=== PATIENT | female | born 1960 | race Caucasian/White ===

== ENCOUNTER 2017-09-05 06:13 | Day surgery (SDC) | payer BC, MEDICARE ==
--- NOTE | 2017-08-30 20:09 | HP ---
HISTORY AND PHYSICAL: DATE OF ADMISSION/SURGERY: 09/05/17 DATE OF OFFICE VISIT: 08/30/17 SURGEON: Juli Cannon MD.* (DICTATED BY FLAKO CHUNG) PROCEDURE: Right knee arthroscopy with partial meniscectomy, possible chondroplasty, possible synovectomy. CHIEF COMPLAINT: Right knee pain. HISTORY OF PRESENT ILLNESS: Ms. Chung is a 56-year-old female with continued complaints of right knee pain. She has failed conservative treatment and elected to proceed with the right knee arthroscopy with partial meniscectomy, which is scheduled for 09/05/[address] Cannon. PAST MEDICAL HISTORY: AFib, IBS, fibromyalgia, atrial tachycardia, gastroparesis, sleep apnea, hypertension, scoliosis, high cholesterol. PAST SURGICAL HISTORY: Spinal stimulator placement, multiple spine surgery, salivary gland excision, bunion surgery, appendectomy, cholecystectomy, hysterectomy. CURRENT MEDICATIONS: 1. Gabapentin 300 mg 3 times a day. 2. Bystolic 10 mg once a day. 3. Eliquis 5 mg twice a day. 4. Rythmol 225 once daily. 5. Xyzal Allergy 5 mg every day. 6. EpiPen as needed. 7. Protonix 40 mg twice a day. 8. Cyclobenzaprine 10 mg daily. 9. Refresh Eye Drops. 10. Lidocaine 5% as needed. 11. Multivitamin. 12. Crestor 10 mg daily. ALLERGIES: LATEX, CONTRAST DYE, ANTIMICROBIAL PRESERVATIVES, DUST MITES, MOLD, POTASSIUM DICHROMATE, PROPYLENE GLYCOL, NICKEL SULFATE, NEOMYCIN SULFATE, METHYLDIBROMO GLUTARONITRILE, GOLD SODIUM THIOSULFATE, GLYCERYL THIOGLYCOLATE, and BRONOPOL. FAMILY HISTORY: Stroke, DVT, PE, and hypertension. SOCIAL HISTORY: She is a 56-year-old female. She lives with her . She does not smoke, use drugs, and use alcohol rarely. REVIEW OF SYSTEMS: A complete 14-point review of systems was reviewed with the patient, is positive for GERD. She denies history of DVT, PE, hepatitis, HIV, or MRSA. PHYSICAL EXAMINATION GENERAL: She is well developed, well nourished, in no acute distress. VITAL SIGNS: She stands 65 inches tall, weighs 178 pounds. Her blood pressure is 122/72, and her heart rate is 80. HEENT: Normocephalic and atraumatic. NECK: Supple. No palpable lymph nodes. PULMONARY: Lungs are clear to auscultation bilaterally. CARDIO: Regular rate and rhythm. Strong S1, S2. ABDOMEN: Soft, nontender, and nondistended. MUSCULOSKELETAL: Right lower extremity, the skin is intact. There is no open wounds or abrasions. There is a moderate joint effusion. Range of motion is 20 to 100 degrees with flexion with extreme pain. She has swelling and tenderness along the medial joint line. Positive Apley's, Klaus's. 2+ dorsalis pedis pulses. Intact sensation in her lower extremity. Muscle groups strengths were intact to 5/5. NEUROLOGICAL: She is alert and oriented x3. ASSESSMENT AND PLAN: Ms. Chung is a 56-year-old female with severe right knee pain. She has elected to proceed with a right knee arthroscopy with partial meniscectomy, possible chondroplasty, possible synovectomy. The surgery is scheduled for 09/05/[address] Cannon discussed the risks and benefits of the surgery at today's visit and all of her questions were answered. She will follow with Dr. Cannon 2 weeks after the surgery. FLAKO CHUNG [id number]/[facility] #: [id number] MTDKarthik
[~2017-09-05 06:13] MED LIST: Buffered Lidocaine 0.9% SYRIN* 5 ML/SYR SYRINGE INTRADERM ONE
[2017-09-05] MEDS ORDERED: Propofol* 10 MG/ML 20 ML BTL IV PUSH ONE (06:30)
[2017-09-05] MEDS ORDERED: Lidocaine 2% PF * 5 ML VIAL ONE (06:31)
[2017-09-05] MEDS ORDERED: Midazolam* 1 MG/ML 2 ML VIAL (2 MG) ONE (06:34)
[2017-09-05] MEDS ORDERED: fentaNYL* 50 MCG/ML 2 ML VIAL (100 MCG VIAL) ONE ×2 (06:34→08:15)
[2017-09-05] MEDS ORDERED: ceFAZolin 2 GM PREMIX (*) 2 GM/50 ML BAG IVPB ONE (06:41)
[2017-09-05] MEDS ORDERED: EPINEPHRINE 1 MG/ML 1 ML VIAL ONE (06:49)
[2017-09-05] MEDS ORDERED: Bupivacaine 0.5% PF 10 ML VIAL INJ ONE (06:49)
[2017-09-05] MEDS ORDERED: methylPREDNISolone ACETATE 80* 80 MG/ML 1 ML VIAL ONE (06:49)
[2017-09-05] MEDS ORDERED: Dexamethasone IV* 4 MG/ML 1 ML (4 MG) ONE (07:51)
[2017-09-05] MEDS ORDERED: Propofol* 500 MG/50 ML BTL ONE (08:06)
[2017-09-05] MEDS ORDERED: HYDROmorphone INJ* 0.5 MG/0.5 ML SYRINGE IV PRN (08:26)
[2017-09-05] MEDS ORDERED: Naloxone* 0.4 MG/ML 1 ML VIAL IV PRN (08:26)
[2017-09-05] MEDS ORDERED: Metoclopramide IV* 5 MG/ML 2 ML VIAL IV PRN (08:26)
[2017-09-05] MEDS ORDERED: Acetaminophen IV 1GM/100ML * 1,000 MG/100 ML VIAL IVPB ONE (08:26)
[2017-09-05] MEDS ORDERED: Ondansetron INJ* 2 MG/ML VIAL ONE (08:34)
[2017-09-05] MEDS ORDERED: Ketorolac INJ* 30 MG/ML 1 ML VIAL ONE (08:34)
[2017-09-05] MEDS ORDERED: Acetaminophen IV 1GM/100ML * 100 ML ONE (08:58)
[2017-09-05] MEDS ORDERED: Metoclopramide IV* 5 MG/ML 2 ML VIAL ONE (09:48)
[2017-09-05 10:13] VITALS: BP 124/66
--- NOTE | 2017-09-06 13:12 | OP ---
DATE OF OPERATION: 09/05/17 - [facility] DATE OF : 64. ATTENDING SURGEON: Juli Cannon M.D. PLANT PROTECTION SUPERVISOR: FLAKO Crowley. Mr. Rojas did help throughout the procedure with preparation of the leg, wound retraction, manipulation of the knee, and wound closure. ANESTHESIOLOGIST: Dr. Pabon. ANESTHESIA: General. PRE-OP DIAGNOSES: Right knee medial meniscal tear, osteoarthritis. POST-OP DIAGNOSES: Right knee medial meniscal tear, osteoarthritis. OPERATIVE PROCEDURE: Right knee arthroscopy with partial medial meniscectomy. ESTIMATED BLOOD LOSS: Less than 25 mL. COMPLICATIONS: None. SPECIMEN: None. BRIEF HISTORY/INDICATIONS: Ms. Chung is a 56-year-old female with several years of increasingly severe right knee pain. Recently, she started to have significant mechanical symptoms along the medial joint line. MRI confirmed a medial meniscal tear. The patient failed conservative treatment with antiinflammatories, pain medications, ambulatory assistive devices, and physical therapy. Due to continued pain and decreased quality of life, she elected to undergo right knee arthroscopy with partial medial meniscectomy, possible chondroplasty, possible synovectomy. Informed consent was obtained from the patient. She understood the risks of surgery included, but were not limited to, bleeding, infection, damage to nearby structures, continued pain, need for further surgery, retear of the meniscus, progression of arthritis, stroke, heart attack, blood clot, and . She wished to proceed. INTRAOPERATIVE FINDINGS: Intraoperatively, the patient was noted to have a linear tear involving the majority of the medial meniscus in the white-red zone. She was noted to have grade 3 and 4 Outerbridge cartilage changes along the medial femoral condyle involving a significant surface area of the weightbearing portion. Lateral and patellofemoral compartment had some scattered grade 2 and 3 Outerbridge cartilage changes. Otherwise, no significant findings. DESCRIPTION OF PROCEDURE: Ms. Chung was identified in the preanesthesia unit. Her right lower extremity was marked as the correct operative side. Informed consent was signed and placed in the chart. The patient was taken to the operating room and placed under general anesthesia. Right lower extremity was prepped and draped in the usual sterile fashion. Preop time-out was made to correctly identify the patient's side and site. Appropriate perioperative antibiotics were given within 1 hour of incision. A standard anterolateral portal incision was made with a 15 blade and carried down through the capsule. Trocar was introduced. As soon as the light and water sources were turned on, there was immediate visualization of the supra- patellar pouch. A tour of the joint was performed. Suprapatellar pouch had no obvious abnormality. Patellofemoral compartment showed some grade 2 and 3 Outerbridge cartilage changes. No significant exposed subchondral bone. Medial gutter showed no loose body or plica. Medial compartment showed some grade 3 and 4 Outerbridge cartilage changes along the medial femoral condyle. There was a visible meniscal tear with some displacement into the joint space. ACL and PCL appeared to be intact. The knee was placed in a ahoany-af-efiz position. There was no obvious lateral meniscal tear. Lateral joint compartment cartilage was without significant abnormalities. Lateral gutter showed no loose body or plica. Under direct visualization, a medial portal incision was made. Probe was introduced and a second tour of the knee joint was performed. There were no additional findings. Probing of the medial meniscal tear showed it was a linear tear involving the vast majority of the medial meniscus in the white-red zone. Straight biter and shaver were used to perform partial medial meniscectomy. Smooth border of the medial meniscus was obtained in the white- red zone. Radio-frequency ablation wand was used to further smooth this edge of the meniscus. Further probing of the meniscus showed no additional tears or displaced fragments. There was no significant cartilage flapping along the medial femoral condyle, although there was a significant amount of exposed subchondral bone. The knee was copiously irrigated with sterile saline. All instruments were removed. Incisions were closed using interrupted 3-0 nylon suture. Intraarticular injection of 80 mg of Depo-Medrol and 6 mL of 0.25% Marcaine was placed in the knee joint. The patient's incisions were covered with Xeroform, 4x4s, and Webril. Asim wrap and cold pack were placed over this. The patient's anesthesia was reversed without difficulty. She was taken to the PACU in stable condition. Intended weight-bearing will be weightbearing as tolerated. The patient will follow up in clinic in 2 weeks' time. She will have suture removal at that time. [id number]/[facility] #: [id number] [facility]
== END 2017-09-05 10:15 | disposition home or self-care (01) ==
LOC: OR 06:13
PROVIDERS: ATTEND Orthopaedic Surgery Adult Reconstructive Orthopaedic Surgery
DX: S83.241A Other tear of medial meniscus, current injury, right knee, initial encounter (principal); M17.11 Unilateral primary osteoarthritis, right knee; I48.91 Unspecified atrial fibrillation; K58.9 Irritable bowel syndrome, unspecified; M79.7 Fibromyalgia; I10 Essential (primary) hypertension; E78.00 Pure hypercholesterolemia, unspecified; I47.1 Supraventricular tachycardia; X50.9XXA Other and unspecified overexertion or strenuous movements or postures, initial encounter; Y92.9 Unspecified place or not applicable
CPT/HCPCS: J0690; J1040; J1100; J1885; J2250; J2405; J2704; J2765; J3010

== ENCOUNTER 2018-10-23 07:44 | Inpatient (IN) | payer BC, MEDICARE ==
--- NOTE | 2018-10-14 17:34 | HP ---
PREOPERATIVE HISTORY AND PHYSICAL: DATE OF ADMISSION: 10/23/18 DATE OF SURGERY: 10/23/18 SURGEON: Dr. Juli Cannon.* (DICTATED BY FLAKO BILLINGS) PROCEDURE: Right medial partial versus total knee arthroplasty with Navio. CHIEF COMPLAINT: Right knee pain. HISTORY OF PRESENT ILLNESS: Ms. Chung is a 57-year-old female with severe right knee pain. She has 7/10 pain along the medial joint line with difficulty walking even 1 block without debilitating pain. She has failed conservative treatment and is interested in surgical intervention with Dr. Cannon at this time. PAST MEDICAL HISTORY: Chronic back pain, chronic pain syndrome, fibromyalgia, osteoarthritis, scoliosis, atrial fibrillation, hypertension, hypercholesterolemia, irritable bowel syndrome, sleep apnea, and gastroparesis. She denies a history of DVT or pulmonary embolus. PAST SURGICAL HISTORY: Spine surgery x4, dorsal column stimulator placement bilaterally, salivary very gland excision, bunionectomy, appendectomy, cholecystectomy, total abdominal hysterectomy. She has nausea with anesthesia and emphasizes that she would need a scopolamine patch. CURRENT MEDICATIONS: 1. Gabapentin 300 mg 2 tabs by mouth 3 times daily. 2. Lidocaine 5% patch apply to affected area 2 times daily as needed. 3. Bystolic 10 mg 1 tab by mouth daily. 4. Eliquis 5 mg 1 tab by mouth twice daily, she was instructed by her primary care to discontinue this 1 week before surgery. 5. Xyzal Allergy 24-hour 5 mg 1 tab by mouth daily. 6. Cyclobenzaprine HCL 10 mg 1 tab by mouth daily this is on hold. 7. Crestor 10 mg 1 tab by mouth daily. 8. Rabeprazole sodium 20 mg 1 tablet by mouth daily. 9. Loratadine 10 mg p.o. p.r.n. 10. Motegrity 2 mg daily. 11. 10 mg p.o. daily. 12. Domperidone 10 mg p.o. twice. 13. Meclizine 25 mg p.o. p.r.n. 14. Naproxen 500 mg p.o. p.r.n. 15. Propafenone HCL 150 p.o. daily. FAMILY HISTORY: Hypertension, scoliosis, and ulcers. SOCIAL HISTORY: She lives with her family who will care for her postoperatively. She denies tobacco, alcohol, or recreational drug use. She normally ambulates with a cane and is minimally active. ALLERGIES: LATEX, CONTRAST DYE, ANTIMICROBIAL PRESERVATIVE (2-bromo-2- nitropropane- 1 3-diol), DUST MITE, MOLD, POTASSIUM DICHROMATE, PROPYLENE GLYCOL, NICKEL SULFATE, NEOMYCIN SULFATE, METHYLDIBROMO GLUTARONITRILE, GOLD SODIUM THIOSULFATE, GLYCERYL THIOGLYCOLATE, BRONOPOL and CODEINE. REVIEW OF SYSTEMS: Fourteen systems were reviewed with the patient and are positive for right knee pain with swelling, chronic back pain and multiple areas of body pain. Negative for fevers, chills, chest pain or shortness of breath and other substances are negative as well. PHYSICAL EXAMINATION GENERAL: She is a well-developed well-nourished female, seated on exam chair in no acute distress with appropriate affect. VITAL SIGNS: Height 65.5 inches, weight 181, pulse 74, blood pressure 130/78, respirations 14. HEENT: Normocephalic atraumatic. Hearing and vision, grossly intact. Extraocular movements intact. NECK: Trachea is midline and symmetrical. CHEST: Lungs clear to auscultation, no wheezes, rales or rhonchi appreciated. CARDIO: Irregular rate and rhythm. No murmurs or gallops appreciated. ABDOMEN: Nondistended. Bowel sounds present. GENITOURINARY: Deferred. MUSCULOSKELETAL: The right lower extremity skin is pink, clean, dry and intact without abrasions or open wounds. There is moderate effusion at the knee with tenderness along the medial joint line. She extends to 10 degrees, flexes to 120 with pain. No varus or valgus instability. 5/5 strength against resistance is 4 planes. The right ankle with full sensation and 2+ dorsalis pedis pulse. DIAGNOSTIC STUDIES/LAB DATA: Imaging: Multiple views obtained previously show joint space narrowing along the medial joint line with near [id number] contact. There are minimal degenerative changes in the lateral patellofemoral compartment. ASSESSMENT: Right knee medial compartment arthritis. PLAN: Right knee medial partial versus total knee arthroplasty with Navio with Dr. Cannon. The patient's questions were answered and she would like to proceed. Dr. Cannon discussed the risks and benefits of the surgery at today's visit. The patient will follow postoperatively. FLAKO BILLINGS [id number]/[facility] #: [id number] [facility]
[~2018-10-23 07:44] MED LIST changes: +Acetaminophen TAB* 325 MG PO ONE; -Buffered Lidocaine 0.9% SYRIN* 5 ML/SYR SYRINGE INTRADERM ONE; +Buffered Lidocaine 1% SYRIN* 1 ML/SYRINGE INTRADERM ONE; +Dexamethasone TAB* 4 MG PO ONE; +DiMENhydriNATE IV* 50 MG/ML VIAL IV PUSH ONE; +Famotidine IV* 10 MG/ML 2 ML (20 mg) IV ONE; +Gabapentin CAP(*) 300 MG PO ONE; +HYDROmorphone INJ1* 1 MG/ML SYRINGE IV PRN; +Lactated Ringers 1000 ML Bag* 1,000 ML IV SCH; +Naloxone* 0.4 MG/ML 1 ML VIAL IV PRN; +Ondansetron ODT TAB* 4 MG PO ONE; +PROCHLORPERAZINE INJ 5 MG/ML 2 ML VIAL IV PRN; +Scopolamine 1.5 mg* PATCH TRANSDERM ONE; +fentaNYL* 50 MCG/ML 2 ML VIAL (100 MCG VIAL) IV PRN
--- OUTSIDE RECORDS SUMMARY | 2018-10-23 07:48 | XMS REPORT | Continuity of Care Document ---
:1960 External Reference #:[id number] Author Name Lisa Moses, MSN, NUT BLANKER OPERATOR Address [address] [place] [address] Care Team Providers Name Role Phone Wilfredo Osborne HUMAN FACTORS ENGINEER - Nurse Practitioner Care Team Information Sales Representative Advertising Problems Active Problems Provider Date Benign essential hypertension Maya Loja MD Onset: 06/18/2015 Mixed hyperlipidemia Maya Loja MD Onset: 06/18/2015 Pure hypercholesterolemia Maya Loja MD Onset: 06/18/2015 Paroxysmal supraventricular tachycardia Baljit Angel M.D., Onset: [facility] Paroxysmal atrial fibrillation Baljit Angel M.D., Onset: 09/03/2015 [facility] Obstructive sleep apnea syndrome Baljit Angel M.D., Onset: 09/03/2015 [facility] Peripheral vertigo Baljit Angel M.D., Onset: 03/21/2016 [facility] Low blood pressure Baljit Angel M.D., Onset: 03/21/2016 [facility] Headache MosesLisa henderson, Onset: 10/05/2016 MSN, NUT BLANKER OPERATOR Palpitations Baljit Angel M.D., Onset: 02/22/2018 [facility] Social History Type Date Description Comments Sex Unknown Tobacco Use Start: Unknown Never Smoked Cigarettes ETOH Use Occasionally consumes alcohol Tobacco Use Start: Unknown Patient has never smoked Smoking Status Reviewed: 08/21/18 Patient has never smoked Allergies, Adverse Reactions, Alerts Active Allergies Reaction Severity Comments Date Latex 06/29/2015 Daypro 06/29/2015 Contrast Dye 06/29/2015 Dust Mites 03/31/2016 Dust 03/31/2016 Mold 03/31/2016 Lisinopril cough 10/05/2016 Gold 08/22/2017 Nickel 08/22/2017 Medications Active Medications SIG Qnty Indications Ordering Provider Date Prednisone 2 tablets the 4tabs Lisa Moses 06/11/2018 20mg night before the [place] MSN, Tablets CT and 2 tablets NUT BLANKER OPERATOR the morning of the CT Propafenone HCL 1 by mouth three 90tabs Baljit Angel 04/20/2018 225mg times a day M., M.D., [facility] Tablets Crestor take 1 tablet by 30tabs Baljit Angel 02/08/2017 10mg Tablets mouth every M., M.D., [facility] evening [place] 3 3 capsules by 120caps Hakeem Mccarthy, 03/31/2016 1000mg mouth 3x/day for M.D. Capsules 1 week, then 2x/day for one week, then 1x/day ongoing Baclofen 1 tab by mouth 60tabs Hakeem Mccarthy, 03/31/2016 10mg Tablets three times a day M.D. spasm Bystolic take 1 tablet by 90tabs Baljit Angel 10/09/2015 10mg Tablets mouth once daily M. MLiudmila., [facility] Eliquis take 1 tablet by 60tabs I47.1 Baljit Angel 06/29/2015 5mg Tablets mouth twice a day M. MLiudmila., [facility] Epipen 2-Gerardo a/d [place], 0.3mg/0.3ML Solution Auto-Inject Lidocaine HCL apply to affected Unknown 3% areas as needed Cream three times a day pain Gabapentin 1 by mouth three Unknown 100mg times a day Capsules Dicyclomine HCL 1 po qd Alberto West, 10mg MD Capsules Rabeprazole Sodium take 1 tablet by Unknown mouth twice a day 20mg Tablets DR History Medications Ranexa 1 by mouth twice 60tabs Maya Loja MD 04/20/2018 - 500mg Tablets ER a day 04/20/2018 12HR Propafenone HCL 1 by mouth three Lisa Moses 04/16/2018 - 150mg times a day Lcuero, MARQUISE, 04/20/2018 Tablets NUT BLANKER OPERATOR Immunizations Description No Information Available Vital Signs Date Vital Result Comment 10/04/2018 7:31am BP Systolic Sitting Left Arm 148 mmHg BP Diastolic Sitting Left Arm 99 mmHg Heart Rate 76 /min Respiratory Rate 18 /min Weight 179.00 lb O2 % BldC Oximetry 96 % ora 08/21/2018 12:56pm BP Systolic 128 mmHg BP Diastolic 78 mmHg Heart Rate 66 /min Respiratory Rate 16 /min Height 65 inches 5'5" Weight 179.25 lb BMI (Body Mass Index) 29.8 kg/m2 BSA (Body Surface Area) 1.89 m2 [place] body weight in kilograms 57 kg O2 % BldC Oximetry 96 % Results Test Date Facility Test Result H/L Range Note CBC 06/01/2018 [facility] White Blood 6.3 K/uL Normal 3.1-10.7 1 W/Automated [address] [place] [address] [phone] Red Blood Count 4.23 M/uL Normal 3.90-5.40 Hemoglobin 12.5 gm/dL Normal 11.6-15.8 Hematocrit 38.6 % Normal 36.0-46.1 Mean Cell Volume 91.3 fl Normal 80.9-99.0 Mean Corpuscular HGB 29.6 pg Normal 25.9-32.7 Mean Corpuscular HGB Conc 32.4 g/dL Normal 30.8-34.3 Platelet Count 275 K/uL Normal 155-360 Red Cell Distri Width SD 45.1 fl Normal 36-47 Red Cell Distri Width %CV 13.4 % Normal 11.7-14.4 Mean Platelet Volume 10.0 fl Normal 8.9-12.4 Neut% 51.8 % Normal 40.4-72.8 Lymph % 36.7 % Normal 20.0-42.0 [place] % 7.9 % Normal 4.3-13.2 Eo% 2.2 % Normal 0.0-6.6 Bas% 1.1 % Normal 0.0-1.1 Immature Grans 0.3 % Normal 0.0-5.0 NRBC % 0.0 /100WBC < 10/ 100 WBC Neut# 3.25 K/uL Normal 1.8-7.0 Lymph # 2.31 K/uL Normal 1.0-4.0 [place] # 0.50 K/uL Normal 0.3-0.9 Eos # 0.14 K/uL Normal 0.0-0.5 Baso # 0.07 K/uL Normal 0.0-0.1 Immature Grans Absolute 0.02 K/uL NRBC # 0.00 K/uL Comprehensive 06/01/2018 [facility] Glucose 90 mg/dL Normal 74-106 Metabolic Panel [address] [place] [address] [phone] BUN 17 mg/dL Normal 7-18 Creatinine 0.7 mg/dL Normal 0.6-1.3 Glom Filtration Rate, Estimate >60 mL/min >60 If >60 mL/min >60 2 BUN/Creat 24.2 ratio Sodium 138 mmol/L Normal 136-145 Potassium 4.7 mmol/L Normal 3.5-5.1 Chloride 105 mmol/L Normal 98-107 Carbon Dioxide 29 mmol/L Normal 21-32 Anion Gap 4 mEq/L Low 8-16 Calcium 9.1 mg/dL Normal 8.5-10.1 Total Protein 7.7 g/dL Normal 6.4-8.2 Albumin 3.9 g/dL Normal 3.4-5.0 Globulin 3.8 g/dL Normal 1.9-4.3 Alb/Glob 1.0 ratio Bilirubin,Total 0.3 mg/dL Normal 0.2-1.0 Sgot/Ast 21 U/L Normal 15-37 SGPT/Alt 31 U/L Normal 12-78 Alkaline Phosphatase 84 U/L Normal 45-117 Laboratory test 06/01/2018 [facility] Magnesium 2.2 mg/dL Normal 1.8-2.4 finding [address] [place] [address] [phone] CBC 04/13/2018 [facility] White Blood 9.0 K/uL Normal 3.1-10.7 [address] [place] [address] [phone] Red Blood Count 4.39 M/uL Normal 3.90-5.40 Hemoglobin 12.8 gm/dL Normal 11.6-15.8 Hematocrit 39.8 % Normal 36.0-46.1 Mean Cell Volume 90.7 fl Normal 80.9-99.0 Mean Corpuscular HGB 29.2 pg Normal 25.9-32.7 Mean Corpuscular HGB Conc 32.2 g/dL Normal 30.8-34.3 Platelet Count 242 K/uL Normal 155-360 Red Cell Distri Width %CV 13.5 % Normal 11.7-14.4 Mean Platelet Volume 9.3 fL Normal 8.9-12.4 Liver Function 04/13/2018 [facility] Total Protein 7.6 g/dL Normal 6.4-8.2 Tests [address] [place] [address] [phone] Albumin 4.0 g/dL Normal 3.4-5.0 Globulin 3.6 g/dL Normal 1.9-4.3 Alb/Glob 1.1 ratio Bilirubin,Total 0.4 mg/dL Normal 0.2-1.0 Bilirubin,Direct < 0.1 mg/dL Normal 0.0-0.2 Bilirubin,Indirect 0.3 mg/dL Normal 0.0-0.9 Sgot/Ast 19 U/L Normal 15-37 SGPT/Alt 33 U/L Normal 12-78 Alkaline Phosphatase 76 U/L Normal 45-117 Laboratory test finding 04/13/2018 [facility] Lipase 146 U/L Normal 56-289 [address] [place] [address] [phone] C-Reactive Protein,Quant 14.7 mg/L High <3.0 1 R07.9 2 Note: Persistent reduction for 3 months or more in an eGFR <60 mL/min/1.73 m2 defines CKD. Patients with eGFR values >/=60 mL/min/1.73 m2 may also have CKD if evidence of persistent proteinuria is present. The original MDRD equation for estimated GFR is not valid for patients less than 18 years of age. Additional information may be found at www.kdoqi.org. 3 L VQDCEA, CHEST PAIN, CBC, CRP, LFT, CHEST XRAY Procedures Date Code Description Status 05/31/2018 59443 EKG-Tracing And Report Completed 04/27/2018 54151 Stress Test Interpre And Report Only Completed 04/27/2018 62394 Stress Test Physician Super Only Completed 04/27/2018 18583 Myocardial Imaging Tomographic Multiple Study AT Rest Completed Or Stress 12/22/2017 95062644 Colonoscopy Completed 12/18/2015 [id number] Colonoscopy Completed Medical Devices Description No Information Available Encounters Type Date Location Provider Dx Diagnosis Office Visit 10/04/2018 Cardiology Office Lisa Moses Z01.810 Encounter for 7:40MARQUISE Polanco, preprocedural NUT BLANKER OPERATOR cardiovascular examination R07.9 Chest pain, unspecified I47.1 Supraventricular tachycardia I10 Essential (primary) hypertension E78.5 Hyperlipidemia, unspecified Office Visit 08/21/2018 1:00p GI Maxwell Gonzalez MD K31.84 Gastroparesis R10.10 Upper abdominal pain, unspecified K63.5 Polyp of colon R53.83 Other fatigue Office Visit 05/31/2018 3:40p Cardiology Lisa Moses R07.9 Chest pain, Office MARQUISE Barker, unspecified NUT BLANKER OPERATOR R10.10 Upper abdominal pain, unspecified I47.1 Supraventricular tachycardia I10 Essential (primary) hypertension E78.5 Hyperlipidemia, unspecified R22.43 Localized swelling, mass and lump, lower limb, bilateral Assessments Date Code Description Provider 10/04/2018 Z01.810 Encounter for preprocedural Lisa Moses MSN, cardiovascular examination NUT BLANKER OPERATOR 10/04/2018 R07.9 Chest pain, unspecified Lisa Moses MSN, NUT BLANKER OPERATOR 10/04/2018 I47.1 Supraventricular tachycardia Lisa Moses MSN, NUT BLANKER OPERATOR 10/04/2018 I10 Essential (primary) hypertension Lisa Moses MSN, NUT BLANKER OPERATOR 10/04/2018 E78.5 Hyperlipidemia, unspecified Lisa Moses MSN, NUT BLANKER OPERATOR 08/21/2018 K31.84 Gastroparesis Maxwell Gonzalez MD 08/21/2018 R10.10 Upper abdominal pain, unspecified Maxwell Gonzalez MD 08/21/2018 K63.5 Polyp of colon Maxwell Gonzalez MD 08/21/2018 R53.83 Other fatigue Maxwell Gonzalez MD 05/31/2018 R07.9 Chest pain, unspecified MosesLisa oleary MSN, NUT BLANKER OPERATOR 05/31/2018 R10.10 Upper abdominal pain, unspecified MosesLisa oleary MSN, NUT BLANKER OPERATOR 05/31/2018 I47.1 Supraventricular tachycardia Lisa Moses MSN, NUT BLANKER OPERATOR 05/31/2018 I10 Essential (primary) hypertension Lisa Moses MSN, NUT BLANKER OPERATOR 05/31/2018 E78.5 Hyperlipidemia, unspecified Lisa Moses MSN, NUT BLANKER OPERATOR 05/31/2018 R22.43 Localized swelling, mass and lump, Lisa Moses MSN, lower limb, bilateral NUT BLANKER OPERATOR 04/27/2018 R07.9 Chest pain, unspecified Maya Loja MD Plan of Treatment Future Appointment(s):04/08/2019 7:40 am - Lisa Moses MSN, NUT BLANKER OPERATOR at Cardiology [id number]/04/2018 - Lisa Moses MSN, FNZ01.810 Encounter for preprocedural cardiovascular examinationComments:She may proceed with the surgery with the above risk profile. She may hold the Eliquis for one weekprior to the surgery. No other medication changes.R07.9 Chest pain, unspecifiedComments:Monitor. No changes.I47.1 Supraventricular tachycardiaComments:No changes.I10 Essential (primary) hypertensionComments: Monitor. No changes.E78.5 Hyperlipidemia, unspecifiedComments:No changes.AllFollow up:Follow up visit in six months. Functional Status Functional Condition Comment Date Status Glasses Active Independent with all ADL's Active Partial lower dentures Active Spinal Cord Stimulators Active Cpap Active Mental Status Description No Information Available Referrals Description No Information Available
--- OUTSIDE RECORDS SUMMARY | 2018-10-23 07:48 | XMS REPORT | Continuity of Care Document ---
:1960 External Reference #:[id number] Author Name Juli Cannon M.D. (transmitted by agent of provider Eloisa Briones) Address [address] [place] [address] Care Team Providers Name Role Phone Mikal Concepcion MD - Internal Medicine Care Team Information Digital Archivist [phone] Sonali Osborne FNP - Nurse Care Team Information Digital Archivist Practitioner Problems Active Problems Provider Date Migraine with typical aura Marty Vaughan M.D. Onset: 10/21/2016 Skin sensation disturbance Marty Vaughan M.D. Onset: 12/14/2016 Contact dermatitis Marty Vaughan M.D. Onset: 06/14/2017 Localized, primary osteoarthritis Juli Cannon M.D. Onset: 08/02/2017 Current tear of medial cartilage AND/OR Juli Cannon M.D. Onset: 08/02/2017 meniscus of knee Scoliosis deformity of spine Onset: 12/02/2014 Migraine Onset: 12/02/2014 Myalgia/myositis - lower leg Onset: 12/02/2014 Hip pain Onset: 12/02/2014 Primary fibromyalgia syndrome Onset: 12/02/2014 Chronic sinusitis Onset: 12/02/2014 Hypertensive disorder Onset: 12/02/2014 Social History Type Date Description Comments Sex Unknown Tobacco Use Start: Unknown Never Smoked Cigarettes Smoking Status Reviewed: 10/12/18 Never Smoked Cigarettes ETOH Use Rarely consumes alcohol Tobacco Use Start: Unknown Patient has never smoked Recreational Drug Use Denies Drug Use Exercise Type/Frequency Does not exercise Allergies, Adverse Reactions, Alerts Active Allergies Reaction Severity Comments Date Latex hives, uticaria 10/21/2016 Contrast Dye Anaphylaxis 10/21/2016 Antimicrobial Preservative 10/21/2016 (0-Utdit-0Uusufyoisynv-1, 3-Diol) Dust Mites 10/21/2016 Mold 10/21/2016 Potasium Dichromate contact 06/14/2017 Propylene Glycol contact 06/14/2017 Nickel Sulfate contact 06/14/2017 Neomycin Sulfate contact 06/14/2017 Methyldibromo Glutaronitrile contact 06/14/2017 Gold Sodium Thiosulfate contact 06/14/2017 Glyceryl Thioglycolate contact 06/14/2017 Bromopol contact 06/14/2017 Codeine Free Text 02/09/2018 Medications Active Medications SIG Qnty Indications Ordering Provider Date Commode Disp 1 commode M17.11 Juli Cannon M.D. 09/27/2018 Ht65.5 Wt 179 Gabapentin 2 by mouth 180caps G43.109 Marty Vaughan 10/25/2017 300mg Capsules three times a M.D. day Lidocaine Apply To 2500gm Juli Cannon M.D. 09/15/2017 5% Ointment Afected Area 2 Times A Day as Needed Naproxen Sodium 1 by mouth Unknown 550mg twice a day as Tablets needed headache Meclizine HCL 1 tablet every Unknown 25mg 8 hours as Tablets needed for vertigo Esomeprazole Strontium Unknown 49.3mg Capsules Dicyclomine HCL 1 every 6 hours Unknown 10mg as needed on Capsules hold Motegrity take for 2 Unknown 2mg Tablets weeks Loratadine Allergy Unknown Relief 10mg Tablets Dispers Rabeprazole Sodium Alberto West MD 20mg Tablets DR Arora 1 by mouth Unknown 10mg Tablets every day Multivitamin 1 by mouth Unknown Adults/Natures Bounty three times daily 5000mcg Of Biotin Tablets Refresh use daily as Unknown Gel needed for dry eyes Cyclobenzaprine HCL one by mouth Unknown 10mg daily Tablets Epipen 2-Gerardo use as directed Unknown 0.3mg/0.3ML Solution Auto-Inject Xyzal Allergy 24HR 1 by mouth Unknown 5mg every day Tablets Eliquis 1 by mouth Unknown 5mg Tablets twice a day Bystolic 1 by mouth once Unknown 10mg Tablets a day Immunizations Description No Information Available Vital Signs Date Vital Result Comment 10/12/2018 10:47am Height 65.5 inches 5'5.50" Weight 181.50 lb Heart Rate 74 /min BP Systolic 130 mmHg BP Diastolic 78 mmHg Respiratory Rate 14 /min Pain Level 8 BMI (Body Mass Index) 29.7 kg/m2 08/27/2018 8:06am Height 65.5 inches 5'5.50" Weight 179.00 lb Heart Rate 80 /min BP Systolic 132 mmHg BP Diastolic 80 mmHg Respiratory Rate 16 /min Pain Level 7 BMI (Body Mass Index) 29.3 kg/m2 Results Description No Information Available Procedures Description No Information Available Medical Devices Description No Information Available Encounters Type Date Location Provider Dx Diagnosis Office Visit 08/27/2018 Orthopedic Juli aCnnon, M25.561 Pain in right 8:45a Services Of [facility] Gregorio knee M25.461 Effusion, right knee M17.11 Unilateral primary osteoarthritis, right knee Office Visit 04/23/2018 8:15a [facility] Services Juli Cannon, M25.561 Pain in right Of Jennifer Gregorio knee M25.461 Effusion, right knee M17.11 Unilateral primary osteoarthritis, right knee Assessments Date Code Description Provider 10/12/2018 M25.561 Pain in right knee Juli Cannon M.D. 10/12/2018 M17.11 Unilateral primary osteoarthritis, right knee Juli Cannon M.D. 08/27/2018 M25.561 Pain in right knee Juli Cannon M.D. 08/27/2018 M25.461 Effusion, right knee Juli Cannon M.D. 08/27/2018 M17.11 Unilateral primary osteoarthritis, right knee Juli Cannon M.D. 04/23/2018 M25.561 Pain in right knee Juli Cannon M.D. 04/23/2018 M25.461 Effusion, right knee Juli Cannon M.D. 04/23/2018 M17.11 Unilateral primary osteoarthritis, right knee Juli Cannon M.D. Plan of Treatment Future Appointment(s):11/05/2018 1:15 pm - Juli Cannon M.D. at [facility].10/23/2018 10:00 am - Hung Rojas PA-C at [facility].10/23/2018 10:00 am - CHANA White at [facility].11/12/2018 3:30 pm - Artur [facility]oval MD [facility] 10:00 am - Juli Cannon M.D. at [facility].10/12/2018 - Juli Cannon M.D.M25.561 Pain in right kneeNew Xrays:Knee Right 1-2 VWS, Ordered: 10/12/18Follow up:Follow up: 10-14 days [id number] Unilateral primary osteoarthritis, right kneeNew Xrays: Knee Right 1-2 VWS, Ordered: 10/12/18 Functional Status Description No Information Available Mental Status Description No Information Available Referrals Refer to Reason for Referral Status Appt Date Artur Sandoval MD spine clinic - chronic back pain Sent [address] [place] [address] [phone]
--- OUTSIDE RECORDS SUMMARY | 2018-10-23 07:48 | XMS REPORT | Continuity of Care Document ---
:1960 External Reference #:[id number] Author Name Juli Cannon M.D. (transmitted by agent of provider Bryan Moscoso) Address [address] [place] [id number] Care Team Providers Name Role Phone Mikal Concepcion MD - Internal Medicine Care Team Information Mri Ct Tech [phone] Sonali Osborne FNP - Nurse Care Team Information Mri Ct Tech Practitioner Problems Active Problems Provider Date Migraine [...] Contrast Dye Anaphylaxis 10/21/2016 Antimicrobial Preservative 10/21/2016 (5-Sbyzt-6Qpuiljtupnui-1, 3-Diol) Dust Mites 10/21/2016 Mold 10/21/2016 Potasium [...] BMI (Body Mass Index) 29.3 kg/m2 Results Test Date Facility Test Result H/L Range Note Inr/Protime 10/12/2018 [facility] Inr 1.18 High 0.82-1.09 1, [address] [place] [address] [phone] Laboratory test 10/12/2018 [facility] Partial 40.3 seconds High 26.0-38.[address] [place] [address] PTT [phone] Type & Screen 10/12/2018 [facility] Patient [place] [address] [phone] Antibody Screen NEGATIVE Urinalysis Profile 10/12/2018 [facility] Urine Color Yellow [address] [place] [address] [phone] Urine Appearance Clear Urine Specific [place] 1.015 Normal 1.010-1.030 Urine pH 7.0 Normal 5-9 Urine Urobilinogen Negative Negative Urine Ketones Negative Negative Urine Protein Negative Negative Urine Leukocytes Negative Negative Urine Blood Negative Negative Urine Nitrite Negative Negative Urine Bilirubin Negative Negative Urine Glucose Negative Negative Urine Culture And 10/12/2018 [facility] Urine Culture SEE RESULT [address] [place] [address] [phone] 1 PAIN IN RIGHT KNEE,EFFUSION, RIGHT KNEE, UNILATERA 2 Standard intensity warfarin therapeutic range: 2.0-3.0 High intensity warfarin therapeutic range: 2.5-3.5 3 SEE RESULT BELOW Name: KATIA CHUNG : [address]: Juli Cannon MD Acct: [id number] Unit: [id number] AGE: 57 Location: PAT Re10/12/18 SEX: F Status: REG REF SPEC: [id number] AUDELIA: 10/12/18-[address]: Juli Cannon MD REQ: [id number] RECD: 10/12/18 STATUS: RODERICK SALINAS DR: Anne Osborne TECHNOLOGY SOLUTIONS ARCHITECT _ SOURCE: URINE SPDESC: ORDERED: Urine Culture QUERIES: Urine Source: Random Procedure Result Reported Site Urine Culture Final 10/13/18- 1323 ML No Growth (<1,000 CFU/mL) * ML - Main Lab . END OF REPORT DEPARTMENT OF PATHOLOGY, [address] [place] [address] Porter Back M.D. Director [facility] # [id number] Procedures Description No Information Available Medical Devices Description No Information Available Encounters Type Date Location Provider Dx Diagnosis Office Visit 08/27/2018 Orthopedic Juli Cannon, M25.561 Pain in right 8:45a Services Of [facility] Gregorio knee M25.461 Effusion, right knee M17.11 Unilateral primary osteoarthritis, right knee Office Visit 04/23/2018 8:15a Orthopedic Services Juli Cannon, M25.561 Pain in right Of Jennifer Greogrio knee M25.461 Effusion, right knee M17.11 Unilateral [...] M17.11 Unilateral primary osteoarthritis, right knee Juli Davis , M.D. Plan of Treatment Future Appointment(s):11/05/2018 1:15 pm - Juli Cannon M.D. at [facility].10/23/2018 12:00 pm - Hung Rojas PA-C at [facility].10/23/2018 12:00 pm - CHANA White at [facility].11/12/2018 3:30 pm - Artur Sandoval MD [facility]10/23/[facility] 12:00 pm - Juli Cannon M.D. at [facility].10/12/2018 - Juli Cannon M.D.M25.561 Pain in right kneeFollow up:Follow up: 10-14 days [id number] Unilateral primary osteoarthritis, right knee Functional Status Description No Information Available Mental Status Description No Information Available Referrals Refer to Dr Reason for Referral Status Appt Date Artur Sandoval MD spine clinic - chronic back pain Sent [address] [place] [phone]
--- OUTSIDE RECORDS SUMMARY | 2018-10-23 07:48 | XMS REPORT | Continuity of Care Document ---
:1960 External Reference #:[id number] Author Name Maxwell Gonzalez MD Address [address] [place] [address] Care Team Providers Name Role Phone Wilfredo Osborne NP - Nurse Practitioner Care Team Information Military Technician Problems Active Problems Provider Date Benign essential hypertension Maya Loja MD Onset: 06/18/2015 Mixed hyperlipidemia Maya Loja MD Onset: 06/18/2015 Pure hypercholesterolemia Maya Loja MD Onset: 06/18/2015 Paroxysmal supraventricular tachycardia Baljit Angel M.D., Onset: [facility] Paroxysmal atrial fibrillation Baljit Angel M.D., Onset: 09/03/2015 [facility] Obstructive sleep apnea syndrome Baljit Angel M.D., Onset: 09/03/2015 [facility] Peripheral vertigo Baljit Angel M.D., Onset: 03/21/2016 [facility] Low blood pressure Baljit Angel M.D., Onset: 03/21/2016 [facility] Headache Moses, seema Cooperetta, Onset: 10/05/2016 MSN, SOFTWARE ENGINEERING PROJECT MANAGER Palpitations Baljit Angel M.D., Onset: 02/22/2018 [facility] Social History Type Date Description Comments Sex [...] Provider Date Prednisone 2 tablets the 4tabs Aurelia 06/11/2018 20mg night before the Lucero, MSN, Tablets CT and 2 tablets SOFTWARE ENGINEERING PROJECT MANAGER the morning of the CT Propafenone HCL 1 by mouth three 90tabs Baljit Angel 04/20/2018 225mg times a day M., M.D., [facility] Tablets Crestor take 1 tablet by 30tabs Baljit Angel 02/08/2017 10mg Tablets mouth every M., M.D., [facility] evening [place] 3 3 capsules by 120caps Hakeem Mccarthy, 03/31/2016 1000mg mouth 3x/day for M.D. Capsules 1 week, then 2x/day for one week, then 1x/day ongoing Baclofen 1 tab by mouth 60tabs Hakeem Mccarthy, 03/31/2016 10mg Tablets three times a day M.D. spasm Bystolic take 1 tablet by 90tabs Baljit Angel 10/09/2015 10mg Tablets mouth once daily M., M.D., [facility] Eliquis take 1 tablet by 60tabs I47.1 Baljit Angel 06/29/2015 5mg Tablets mouth twice a day M., M.D., [facility] Epipen 2-Gerardo a/d Rose [place], 0.3mg/0.3ML Solution [...] Moses 04/16/2018 - 150mg times a day Lucero, MARQUISE, 04/20/2018 Tablets SOFTWARE ENGINEERING PROJECT MANAGER Immunizations Description No Information Available Vital Signs Date Vital Result Comment 10/09/2018 11:00am BP Systolic Sitting Left Arm 116 mmHg BP Diastolic Sitting Left Arm 64 mmHg Heart Rate 74 /min Respiratory Rate 20 /min Weight 178.00 lb O2 % BldC Oximetry 98 % 10/04/2018 7:31am BP Systolic Sitting Left Arm 148 mmHg BP Diastolic Sitting Left Arm 99 mmHg Heart Rate 76 /min Respiratory Rate 18 /min Weight 179.00 lb O2 % BldC Oximetry 96 % ora Results Test Date Facility Test Result H/L Range Note CBC 06/01/2018 [facility] White Blood 6.3 K/uL Normal 3.1-10.7 1 W/Automated [address] [place] [address] [phone] Red Blood Count 4.23 M/uL Normal 3.90-5.40 [...] 40.4-72.8 Lymph % 36.7 % Normal 20.0-42.0 [place] % 7.9 % Normal 4.3-13.2 Eo% 2.2 % Normal 0.0-6.6 Bas% 1.1 % Normal 0.0-1.1 Immature Grans 0.3 % Normal 0.0-5.0 NRBC % 0.0 /100WBC < 10/ 100 WBC Neut# 3.25 K/uL Normal 1.8-7.0 Lymph # 2.31 K/uL Normal 1.0-4.0 [place] # 0.50 K/uL Normal 0.3-0.9 Eos # 0.14 K/uL Normal 0.0-0.5 Baso # 0.07 K/uL Normal 0.0-0.1 Immature Grans Absolute 0.02 K/uL NRBC # 0.00 K/uL Comprehensive 06/01/2018 [facility] Glucose 90 mg/dL Normal 74-106 Metabolic Panel [address] [place] [address] [phone] BUN 17 mg/dL Normal 7-18 Creatinine 0.7 [...] 84 U/L Normal 45-117 Laboratory test 06/01/2018 [facility] Magnesium 2.2 mg/dL Normal 1.8-2.4 finding [address] [place] [address] [phone] CBC 04/13/2018 [facility] White Blood 9.0 K/uL Normal 3.1-10.7 [address] [facility] [address] [phone] Red Blood Count 4.39 M/uL Normal 3.90-5.40 [...] Protein 7.6 g/dL Normal 6.4-8.2 Tests [address] [place], [place] [address] [phone] Albumin 4.0 g/dL Normal 3.4-5.0 Globulin 3.6 g/dL Normal 1.9-4.3 Alb/Glob 1.1 ratio Bilirubin,Total 0.4 mg/dL Normal 0.2-1.0 Bilirubin,Direct < 0.1 mg/dL Normal 0.0-0.2 Bilirubin,Indirect 0.3 mg/dL Normal 0.0-0.9 Sgot/Ast 19 U/L Normal 15-37 SGPT/Alt 33 U/L Normal 12-78 Alkaline Phosphatase 76 U/L Normal 45-117 Laboratory test finding 04/13/2018 [facility] Lipase 146 U/L Normal 56-289 [address] [place], [place] [address] [phone] C-Reactive Protein,Quant 14.7 mg/L High <3.0 1 [...] XRAY Procedures Date Code Description Status 05/31/2018 97499 EKG-Tracing And Report Completed 04/27/2018 29479 Stress Test Interpre And Report Only Completed 04/27/2018 23755 Stress Test Physician Super Only Completed 04/27/2018 13941 Myocardial Imaging Tomographic Multiple Study AT Rest Completed Or Stress 12/22/2017 11443282 Colonoscopy Completed 12/18/2015 87344080 Colonoscopy Completed Medical Devices Description No Information Available Encounters Type Date Location Provider Dx Diagnosis Office Visit 10/04/2018 Cardiology Office Lisa Moses Z01.810 Encounter for 7:40a MAQRUISE Barker, preprocedural SOFTWARE ENGINEERING PROJECT MANAGER cardiovascular examination R07.9 Chest pain, unspecified I47.1 Supraventricular tachycardia I10 Essential (primary) hypertension E78.5 Hyperlipidemia, unspecified Office Visit 08/21/2018 1:00p GI Maxwell Gonzalez MD K31.84 Gastroparesis R10.10 Upper abdominal pain, unspecified K63.5 Polyp of colon R53.83 Other fatigue Office Visit 05/31/2018 3:40p Cardiology Lisa Moses R07.9 Chest pain, Office MARQUISE Barker, unspecified SOFTWARE ENGINEERING PROJECT MANAGER R10.10 Upper abdominal pain, unspecified I47.1 Supraventricular tachycardia I10 Essential (primary) hypertension E78.5 Hyperlipidemia, unspecified R22.43 Localized swelling, mass and lump, lower limb, bilateral Assessments Date Code Description Provider 10/09/2018 K31.84 Gastroparesis Maxwell Gonzalez MD 10/09/2018 R10.10 Upper abdominal pain, unspecified Maxwell Gonzalez MD 10/09/2018 R14.0 Abdominal distension (gaseous) Maxwell Gonzalez MD 10/04/2018 Z01.810 Encounter for preprocedural Lisa Moses MSN, cardiovascular examination SOFTWARE ENGINEERING PROJECT MANAGER 10/04/2018 R07.9 Chest pain, unspecified Lisa Moses MSN, SOFTWARE ENGINEERING PROJECT MANAGER 10/04/2018 I47.1 Supraventricular tachycardia Lisa Moses MSN, SOFTWARE ENGINEERING PROJECT MANAGER 10/04/2018 I10 Essential (primary) hypertension Lisa Moses MSN, SOFTWARE ENGINEERING PROJECT MANAGER 10/04/2018 E78.5 Hyperlipidemia, unspecified Lisa Moses MSN, SOFTWARE ENGINEERING PROJECT MANAGER 08/21/2018 K31.84 Gastroparesis Maxwell Gonzalez MD 08/21/2018 R10.10 Upper abdominal pain, unspecified Maxwell Gonzalez MD 08/21/2018 K63.5 Polyp of colon Maxwell Gonzalez MD 08/21/2018 R53.83 Other fatigue Maxwell Gonzalez MD 05/31/2018 R07.9 Chest pain, unspecified MosesLisa MSN, SOFTWARE ENGINEERING PROJECT MANAGER 05/31/2018 R10.10 Upper abdominal pain, unspecified Lisa Moses MSN, SOFTWARE ENGINEERING PROJECT MANAGER 05/31/2018 I47.1 Supraventricular tachycardia Lisa Msoes MSN, SOFTWARE ENGINEERING PROJECT MANAGER 05/31/2018 I10 Essential (primary) hypertension MosesLisa oleary MSN, SOFTWARE ENGINEERING PROJECT MANAGER 05/31/2018 E78.5 Hyperlipidemia, unspecified Lisa Moses MSN, SOFTWARE ENGINEERING PROJECT MANAGER 05/31/2018 R22.43 Localized swelling, mass and lump, MosesLisa oleary MSN, lower limb, bilateral SOFTWARE ENGINEERING PROJECT MANAGER 04/27/2018 R07.9 Chest pain, unspecified Maya Loja MD Plan of Treatment Future Appointment(s):04/08/2019 7:40 am - Lisa Moses, MARQUISE, SOFTWARE ENGINEERING PROJECT MANAGER at Cardiology [id number]/09/2018 - Maxwell Gonzalez MDK31.84 GastroparesisComments: endoscopy was already doneholding domperidonetrial of motegrity for both colon and may help stomach as wellR10.10 Upper abdominal pain, unspecifiedComments: related to gas and bloating. constipationother otc treatments not successful trial of motegrity / prucalopridehistory of afib, but no adverse affects noted from Motegrity in research studies.samples of motegrity 2 mg two week pcuvasI14.0 Abdominal distension (gaseous)Comments:i went over Low fodmaps diet Functional Status Functional Condition Comment Date Status Glasses Active Independent with all ADL's Active Partial lower dentures Active Spinal Cord Stimulators Active Cpap Active Mental Status Description No Information Available Referrals Description No Information Available
--- OUTSIDE RECORDS SUMMARY | 2018-10-23 07:48 | XMS REPORT | Continuity of Care Document ---
:1960 External Reference #:[id number] Author Name Juli Cannon M.D. (transmitted by agent of provider Eloisa Briones) Address [address] [place] [address] Care Team Providers Name Role Phone Mikal Concepcion MD - Internal Medicine Care Team Information Parole Board Member Sonali Osborne FNP - Nurse Care Team Information Parole Board Member Practitioner Problems Active Problems Provider Date Migraine [...] Contrast Dye Anaphylaxis 10/21/2016 Antimicrobial Preservative 10/21/2016 (3-Ixota-5Vwepfjxqgywz-1, 3-Diol) Dust Mites 10/21/2016 Mold 10/21/2016 Potasium [...] Juli Cannon M.D. at [facility].10/23/2018 10:00 am - Hung Rojas PA-C at [facility].10/23/2018 10:00 am - CHANA White at [facility].11/12/2018 3:30 pm - Artur Sandoval MD at [facility]10/23/2018 10:00 am - Juli Cannon M.D. at [facility].10/12/2018 - Juli Cannon M.D.M25.561 Pain in right kneeNew Xrays:Knee Right 1-2 VWS, Ordered: 10/12/18Follow up:Follow up: 10-14 days xuvwzkW67.11 Unilateral primary osteoarthritis, right kneeNew Xrays: Knee Right 1-2 VWS, Ordered: 10/12/18 Functional Status Description No Information Available Mental Status Description No Information Available Referrals Refer to Reason for Referral Status Appt Date Artur Sandoval MD spine clinic - chronic back pain Sent [address] [place] [phone]
[2018-10-23] MEDS ORDERED: Gabapentin CAP(*) 300 MG ONE (08:27)
[2018-10-23] MEDS ORDERED: Acetaminophen TAB* 325 MG ONE (08:27)
[2018-10-23] MEDS ORDERED: Ondansetron ODT TAB* 4 MG ONE (08:27)
[2018-10-23] MEDS ORDERED: Dexamethasone TAB* 4 MG ONE (08:27)
[2018-10-23] MEDS ORDERED: DiMENhydriNATE IV* 50 MG/ML VIAL ONE (08:27)
[2018-10-23] MEDS ORDERED: Buffered Lidocaine 1% SYRIN* 1 ML/SYRINGE INTRADERM ONE (08:28)
[2018-10-23] MEDS ORDERED: Scopolamine 1.5 mg* PATCH ONE (08:28)
[2018-10-23] MEDS ORDERED: Famotidine IV* 10 MG/ML 2 ML (20 mg) ONE (08:28)
[2018-10-23] MEDS ORDERED: ceFAZolin 2 GM PREMIX in ORs 2 GM/50 ML BAG ONE (08:28)
[2018-10-23] MEDS ORDERED: fentaNYL* 50 MCG/ML 5 ML VIAL (250 MCG VIAL) ONE (09:44)
[2018-10-23] MEDS ORDERED: KETAMINE HCL* 50 MG/ML 10 ML VIAL ONE (09:44)
[2018-10-23] MEDS ORDERED: Midazolam* 1 MG/ML 10 ML VIAL (10 MG) ONE (09:44)
[2018-10-23] MEDS ORDERED: Rocuronium* 10 MG/ML VIAL ONE (09:45)
[2018-10-23] MEDS ORDERED: ROPIVACAINE 5 MG/ML 30 ML BTL (0.5%) ONE (10:13)
[2018-10-23] MEDS ORDERED: Lidocaine 2% PF * 5 ML VIAL ONE (12:30)
[2018-10-23] MEDS ORDERED: Phenylephrine 10 MG/ML VIAL* 1 ML VIAL ONE (12:30)
[2018-10-23] MEDS ORDERED: Phenylephrine 40 MCG/ML SYRINGE ONE (12:30)
[2018-10-23] MEDS ORDERED: PROCHLORPERAZINE INJ 5 MG/ML 2 ML VIAL ONE (12:30)
[2018-10-23] MEDS ORDERED: EPHEDrine (Pressors)* 50 MG/ML VIAL ONE (12:30)
[2018-10-23] MEDS ORDERED: Bupivacaine 0.5% SDV PF* 30ML VIAL ONE (12:30)
[2018-10-23] MEDS ORDERED: Propofol* 10 MG/ML 20 ML BTL ONE (12:30)
[2018-10-23] MEDS ORDERED: HYDROmorphone INJ1* 1 MG/ML SYRINGE ONE (13:10)
[2018-10-23] MEDS ORDERED: diPHENhydraMINE PO* 25 MG PO PRN (14:16)
[2018-10-23] MEDS ORDERED: oxyCODONE/Acetamin 5/325 MG* TAB PO PRN (14:16)
[2018-10-23] MEDS ORDERED: diPHENhydraMINE IV* 50 MG/ML 1 ml VIAL (BENADRYL) IV PRN (14:16)
[2018-10-23] MEDS ORDERED: Acetaminophen TAB* 325 MG PO PRN (14:16)
[2018-10-23] MEDS ORDERED: Morphine INJ* 2 MG/ML 1 ML SYRINGE (TWO MG - NEW SYRINGE VERSION) IV PRN (14:16)
[2018-10-23] MEDS ORDERED: Ondansetron INJ* 2 MG/ML VIAL IV PRN (14:16)
[2018-10-23] MEDS ORDERED: Magnesium Hydroxide LIQ* 30 ML UDC PO PRN (14:16)
[2018-10-23] MEDS ORDERED: Cyclobenzaprine TAB* 10 MG PO PRN (14:16)
[2018-10-23] MEDS ORDERED: oxyCODONE TAB* 5 MG TAB PO PRN (14:16)
[2018-10-23] MEDS ORDERED: Ondansetron ODT TAB* 4 MG PO PRN (14:16)
[2018-10-23] MEDS ORDERED: Meclizine TAB* 12.5 MG PO PRN (15:40)
[2018-10-23] MEDS ORDERED: Dicyclomine CAP* 10 MG PO PRN (15:40)
[2018-10-23] MEDS: Lactated Ringers 1000 ML Bag* 1,000 ML IV SCH (16:00)
[2018-10-23] MEDS ORDERED: Polyethylene Glycol 3350* 17 GM PACKET PO PRN (16:07)
--- NOTE | 2018-10-23 16:07 | PN ---
Progress Note - Progress Note Date of Service: 10/23/18 Note: Pt seen at bedside. Her pain is well controlled. Denies CP, SOB, dizziness, nausea. Of note she has a hx gastroparesis as well as SVT. She takes eliquis 5 mg BID which can be restarted tomorrow morning. Changed PRN nausea med from zofran to reglan. Added senna, has colace and Milk of mag ordered. Dressing CDI , thigh soft, DF/PF intact, DP2+, sensation intact to light touch distally.
[2018-10-23] MEDS ORDERED: Metoclopramide IV* 5 MG/ML 2 ML VIAL IV PRN (16:09)
[2018-10-23] MEDS ORDERED: Metoclopramide TAB* 10 MG PO PRN (16:10)
--- NOTE | 2018-10-23 17:07 | CONS ---
CONSULTATION REPORT: DATE OF CONSULT: 10/23/18 REQUESTING PROVIDER: Dr. Cannon. ATTENDING PHYSICIAN WHILE IN THE HOSPITAL: Dr. Jarvis (dictated by FLAKO Vidal). REASON FOR CONSULT: Co-management of chronic medical conditions. HISTORY OF PRESENT ILLNESS: Katia Chung is a 57-year-old white female with past medical history significant for atrial fibrillation; hypertension; chronic back pain; fibromyalgia; scoliosis; hyperlipidemia; IBS; SELENE, on CPAP; and gastroparesis, who presented for knee surgery with Dr. Cannon today. The patient failed outpatient conservative therapy of her right knee osteoarthritis and decided to proceed with elective surgery. Due to the patient being unable to have an MRI due to presence of spinal cord stimulators, it was initially unclear whether a total or partial knee arthroplasty be performed. Ultimately, a partial right knee arthroplasty was performed by Dr. Cannon. The patient is evaluated in the PACU after surgery. She tells me she is still sleepy from anesthesia. She awakens to sound and follows commands appropriately, but is quite sedated still. Therefore, her provides the majority of her history. The patient herself tells me that she is feeling comfortable after surgery. She just feels tired. She denies pain, chest pain, difficulty breathing, abdominal pain, nausea, vomiting, or visual changes. Her tells me that she was prescribed Augmentin prior to her surgery for sinusitis and already completed the full course. She is therefore, not taking it anymore and I have erased it from her home medication list to reflect this. PAST MEDICAL HISTORY: 1. Atrial fibrillation. 2. Hypertension, it appears that the patient is not taking antihypertensive medications. 3. Chronic back pain. 4. Fibromyalgia. 5. Scoliosis. 6. Hyperlipidemia. 7. IBS. 8. Gastroparesis not due to diabetes. 9. SELENE, on CPAP. PAST SURGICAL HISTORY: 1. Spine surgery x4. 2. Dorsal column stimulator placement bilaterally. 3. Salivary gland removal. 4. Bunionectomy. 5. Appendectomy. 6. Cholecystectomy. 7. Total hysterectomy. FAMILY HISTORY: Denies family history of diabetes. Father of a stroke at age 72. Mother of a stroke in her 50s. SOCIAL HISTORY: The patient lives with her . She denies tobacco use, alcohol use, or illicit drug use. PHYSICAL EXAM: Vital Signs: In the PACU, temperature 98.6 degrees Fahrenheit, heart rate 62, respiratory rate 15, oxygen saturation 96% on 3 L of oxygen, blood pressure 117/67. General: A middle-aged white female, who appears older than stated age, lying in hospital bed, appearing comfortable, in no acute distress, at bedside. Head: Normocephalic, atraumatic. Eyes: PERRL. Sclerae anicteric. ENT: Mucous membranes moist. Lungs: Clear to auscultation throughout. Cardio: Regular rate and rhythm without murmurs, rubs , or gallops. Abdomen: The abdomen is soft, nontender, nondistended. Extremities: No clubbing, cyanosis, or edema. Neuro: The patient is able to move all extremities. Sensation to light touch is intact throughout. The patient is minimally sedated, but awakens easily to voice and follows commands appropriately. She is oriented x3. ASSESSMENT AND PLAN: Katia Chung is a 57-year-old female with past medical history significant for atrial fibrillation, hypertension, gastroparesis, chronic back pain and sleep apnea, who presents for elective right partial knee arthroplasty with Dr. Cannon today. Hospital Medicine was consulted for co- management of chronic conditions. 1. Atrial fibrillation. The patient takes nebivolol and propafenone at home and I will continue hospital formulary versions of these medications and place the patient on telemetry. The patient is initially on 2.5 mg p.o. b.i.d. of Eliquis per Orthopedic Surgery for DVT prophylaxis. I have increased it to her normal home dose of 5 mg p.o. b.i.d. 2. Obstructive sleep apnea. The patient uses CPAP at home and her has brought her home CPAP for her to be used in the hospital. I have placed this order. Continuous pulse ox while the patient is asleep is in order as well. 3. Hypertension. The patient does not take antihypertensive medications and her blood pressure has been normotensive during her time in the PACU. We will continue to monitor this and adjust as necessary. 4. Gastroparesis. The patient takes multiple medications for her gastroparesis , which may be worsened in the setting of opiate use. She has already been started on bowel regimen. There is not a perfect substitution for her home domperidone; however, she does take prucalopride at home and I will continue Reglan in substitution for this. Additionally, I will continue her home p.r.n. Bentyl and p.r.n. meclizine for nausea. 5. Hyperlipidemia. I will continue statin. 6. DVT prophylaxis: The patient is on Eliquis. 7. Status post partial total knee arthroplasty. Management per Orthopedic Surgery. 8. Disposition: Per Orthopedic Surgery. Thank you for allowing us to participate in the care of this patient. We will follow during this admission. FLAKO VIDAL [id number]/[facility] #: [id number] FAMILIA
[2018-10-23] MEDS ORDERED: Cetirizine* 10 MG TAB PO SCH (18:00)
[2018-10-23] MEDS ORDERED: Atorvastatin* 20 MG TAB PO SCH (18:00)
[2018-10-23] MEDS ORDERED: PRUCALOPRIDE SUCCINATE 2 MG PO SCH (18:00)
[2018-10-23] MEDS: ceFAZolin 1 GM ADVAN(*) 1 GM in NS 0.9% 50 ML* 50 ML IVPB SCH (20:28)
[2018-10-23] MEDS: Magnesium Hydroxide LIQ* 30 ML UDC PO SCH (20:29)
[2018-10-23] MEDS: Docusate CAP* 100 MG PO SCH (20:29)
[2018-10-23] MEDS: Apixaban* 5 MG TAB PO SCH (20:30)
[2018-10-23] MEDS ORDERED: Senna TAB 8.6 mg* TAB PO SCH (21:00)
[2018-10-23] MEDS ORDERED: Dextran 70/Hypromellose Tears Eye Drops 15 ml BTL (for Artificials Tears) BOTH EYES SCH (21:00)
[2018-10-24] MEDS: Lactated Ringers 1000 ML Bag* 1,000 ML IV SCH (02:47)
--- NOTE | 2018-10-24 03:08 | OP ---
DATE OF OPERATION: 10/23/18 - ROOM #342 DATE OF : 64. ATTENDING SURGEON: Juli Cannon MD. PLASMA CUTTING MACHINE OPERATOR: FLAKO Crowley. Mr. Rojas did help throughout the procedure with preparation of the leg, wound retraction, manipulation of the knee, and wound closure. ANESTHESIOLOGIST: Dr. Franz. ANESTHESIA: Spinal. PRE-OP DIAGNOSIS: Right knee medial compartment advanced osteoarthritis. POST-OP DIAGNOSIS: Right knee medial compartment advanced osteoarthritis. OPERATIVE PROCEDURE: Right medial partial knee replacement. ESTIMATED BLOOD LOSS: 50 cc. TOURNIQUET TIME: 65 minutes. SPECIMEN: Bone and cartilage from the femur and tibia sent to Pathology. COMPLICATIONS: None. HARDWARE USED: This is a Carlos Eduardo unicompartment knee system. For the femur, a size C right medial High Flex precoat femoral component. For the tibia, a size 1 right medial tibial component and for the insert, a size 1 8-mm insert. BRIEF HISTORY/INDICATION: Ms. Chung is a 57-year-old female who has had several years of increasingly severe medial sided pain in the right knee. Radiographs showed advanced arthritis in the medial compartment of her right knee. She did not have significant arthritis in the patellofemoral or lateral compartment. She failed conservative treatment with anti-inflammatories, pain medications, intraarticular injection and arthroscopy. Due to continued pain and decreased quality of life, we discussed a partial knee replacement. We thought that she was a good candidate for this and she elected to proceed. Informed consent was obtained from the patient. She understood the risks of surgery included, but were not limited to bleeding, infection, damage to nearby structures, continued pain, need for further surgery, intraoperative fracture, nerve palsy, hardware failure or loosening, knee stiffness, loss of motion, stroke, heart attack, blood clot, and . She wished to proceed. INTRAOPERATIVE FINDINGS: Intraoperatively, the medial compartment of the knee had extensive cartilage loss and very minimal degenerative changes in the patellofemoral and lateral compartments. ACL and PCL were intact. DESCRIPTION OF PROCEDURE: Ms. Chung was identified in the preanesthesia unit. The [employer]ocaMap Robotic System from [employer] and [employer] was used for placement of this medial partial knee replacement. The informed consent was signed and placed in the chart. Her right lower extremity was marked as the correct operative side. The patient was taken to the operating room and placed under anesthesia. A Alexandre catheter was placed. The tourniquet was placed on the right thigh. The right lower extremity was prepped and draped in the usual sterile fashion. Preop time-out was made to correctly identify the patient's side and site. Appropriate perioperative antibiotics were given within 1 hour of incision. Tourniquet was inflated and total tourniquet time for this procedure was 65 minutes. A midline incision was made with a 10-blade and carried down to the extensor mechanism. A new 10-blade was used to make a standard medial parapatellar arthrotomy. Lateral and patellofemoral compartments did not have any visible degenerative changes though the patella was subluxed laterally. Electrocautery was used to subperiosteally elevate soft tissue off the superomedial tibia. Two screws were placed as check points. One in the medial femoral condyle, one along medial tibial plateau. Two pins were placed in the tibia and two pins in the femur. The arrays were attached to the 2 pins. The LocaMap Robotic System was then used to map the anatomy of the medial femur and tibia. The size and placement of the hardware for the medial knee replacement was then decided upon using the LocaMap Robotic System. The robotic stephanie was used to remove the appropriate bone along the femur. Femoral size was a C. The femoral trial size C was then impacted onto the distal femur and had excellent fit and placement. This trial was removed. Attention was next turned to preparation of the tibia. The robotic stephanie was used to carefully remove the bone along the medial tibial plateau. The tibia was sized at a size 1. The size 1 trial was pinned into position and 2 drill holes were placed. The femoral trial was placed with 8 mm insert trial. The knee was taken through a range of motion and had good alignment with excellent range of motion. There was good patellofemoral tracking without any impingement. The final check points and measurements were entered into the [employer] Robotic System. At this time, the two screws and four pins were removed. The bony cut surfaces were copiously irrigated with sterile saline and dried. The final implants were cemented into place starting with the tibia followed by the femur. An 8-mm insert trial was placed and the knee was brought out into full extension. Tourniquet was turned down at 65 minutes. The cement was allowed to fully cure. The insert trial was removed. The final insert chosen was a 8-mm size 1 polyethylene insert. This was locked into position on the tibial tray without difficulty. Stability of the insert was checked and rechecked and noted to be stable. The knee was copiously irrigated with sterile saline. The extensor mechanism was closed using interrupted #1 Vicryls. The rest of the incision was closed in a layered fashion using 0 and 2-0 Vicryls. The skin was closed using running 3-0 nylon suture. Sterile Xeroform, 4x4's, and Webril were used to cover the incisions. Asim wrap and cold pack were placed over this. The patient's anesthesia was reversed without difficulty. She was taken to the PACU in stable condition. Intended weight bearing will be weight bearing as tolerated. Intended DVT prophylaxis will be Eliquis. [id number]/[facility] #: [id number] MTDD
[2018-10-24] MEDS: ceFAZolin 1 GM ADVAN(*) 1 GM in NS 0.9% 50 ML* 50 ML IVPB SCH ×2 (04:11→12:09)
[2018-10-24 05:47] LABS: Hematocrit 33 % (35-47); Mean Platelet Volume 7.7 fL (7.4-10.4); Platelet Count 226 10^3/uL (150-450)
[2018-10-24] MEDS: oxyCODONE/Acetamin 5/325 MG* TAB PO PRN ×3 (05:52→14:23)
[2018-10-24 06:07] LABS: Calcium 8.8 mg/dL (8.6-10.3); EGFR African American 148.1 (>60); EGFR Non-African American 122.4 (>60); Potassium 4.1 mmol/L (3.5-5.0)
[2018-10-24] MEDS ORDERED: Pantoprazole TAB * 40 MG TAB PO SCH (09:00)
[2018-10-24] MEDS ORDERED: Apixaban* 2.5 MG TAB PO SCH (09:00)
[2018-10-24] MEDS ORDERED: Vitamin THERAPEUTIC TAB PO SCH (09:00)
[2018-10-24] MEDS ORDERED: CMCS: Nebivolol TAB (NF) 2.5 MG TAB PO SCH (09:00)
[2018-10-24] MEDS ORDERED: proPAFENone TAB* 150 MG PO SCH (09:00)
[2018-10-24] MEDS: Docusate CAP* 100 MG PO SCH (09:23)
[2018-10-24] MEDS: Magnesium Hydroxide LIQ* 30 ML UDC PO SCH (09:23)
[2018-10-24] MEDS: Apixaban* 5 MG TAB PO SCH (09:23)
--- NOTE | 2018-10-24 10:56 | PN ---
Progress Note - Progress Note Date of Service: 10/24/18 SOAP: Subjective: []Pt seen at bedside, she is POD 1 sp R medical knee replacement. She feels well without CP, SOB, dizziness or nausea. Objective: []Gen: Appears well, NAD RLE: Right knee dressing changed, incision is CDI, thigh soft, DF/PF intact, DP2 +, sensation intact to light touch distally. Calves supple and nontender without erythema, edema or palpable cords Assessment: []POD 1 sp R medial knee replacement Plan: []WBAT PT/OT eliquis 5 mg po bid ( home dosing) DC home today as long as PT goals met Vital Signs Temp 98.1 F 10/24/18 07:40 Pulse 63 10/24/18 07:40 Resp 18 10/24/18 10:06 BP 115/54 10/24/18 07:40 Pulse Ox 100 10/24/18 07:40 Intake & Output 10/23/18 10/24/18 10/24/18 18:59 06:59 18:59 Intake Total 2200 350 320 Output Total 1100 300 Balance 2200 -750 20 Weight 183 lb 6.4 oz Intake: IV Fluids 2200 LR 2100 NS 100ML, Cefazolin 2G 100 IVPB 50 ABX - CEFAZOLIN 50 Oral 300 320 Output: Urine 300 Alexandre 1100 Laboratory Last Values Hgb 11.0 g/dL (12.0-16.0) L 10/24/18 05:31 Hct 33 % (35-47) L 10/24/18 05:31 Plt Count 226 10^3/uL (150-450) 10/24/18 05:31 MPV 7.7 fL (7.4-10.4) 10/24/18 05:31 Sodium 140 mmol/L (135-145) 10/24/18 05:31 Potassium 4.1 mmol/L (3.5-5.0) 10/24/18 05:31 Chloride 105 mmol/L (101-111) 10/24/18 05:31 Carbon Dioxide 29 mmol/L (22-32) 10/24/18 05:31 Anion Gap 6 mmol/L (2-11) 10/24/18 05:31 BUN 13 mg/dL (6-24) 10/24/18 05:31 Creatinine 0.52 mg/dL (0.51-0.95) 10/24/18 05:31 Est GFR ( Amer) 148.1 (>60) 10/24/18 05:31 Est GFR (Non-Af Amer) 122.4 (>60) 10/24/18 05:31 BUN/Creatinine Ratio 25.0 (8-20) H 10/24/18 05:31 Glucose 112 mg/dL (70-100) H 10/24/18 05:31 Calcium 8.8 mg/dL (8.6-10.3) 10/24/18 05:31
--- NOTE | 2018-10-24 11:04 | DS ---
Orthopedic Discharge Summary - Discharge Summary Date of Admission:10/23/18 Date of Discharge: 10/24/18 Date of Surgery: 10/23/18 Attending Orthopedic Provider: Dr Cannon Pre-operative Diagnosis: Right knee osteoarthritis Operative Procedure: right medial knee replacement Disposition of Patient: home, outpt PT Condition of Patient: stable History: HAN SETHI is a 57 year old F with years of increasingly severe right knee pain. Patient has failed conservative management and has elected to undergo a right medial knee replacement Hospital Course: HAN was admitted to [facility] on 10/23/18. Patient underwent a right medial knee replacement without complication followed by a brief recovery in PACU and transfer to the Short Stay Surgical Unit in stable condition. Our hospitalist service, physical therapy also participated in this patients care. Post-op day 1: patient was alert and in no acute distress. Dressing was clean, dry and intact. Operative extremity dorsiflexion and plantarflexion intact, sensation intact to light touch distally, DP2+. Prior to DC dressing was changed, incision was clean, dry and intact. Patient was deemed to be medically and orthopedically stable for discharge. Physical therapy goals were met. Home Medications Medication Instructions Recorded Confirmed Type Apixaban* [Eliquis*] 5 mg PO BID 08/25/17 10/23/18 History Cyclobenzaprine TAB* [Flexeril 10 10 mg PO TID 08/25/17 10/23/18 History MG TAB*] EPINEPHrine [Epipen] 0.3 mg IJ DAILY PRN 08/25/17 10/23/18 History LevoCETirizine TAB (NF) [Xyzal TAB 5 mg PO QPM 08/25/17 10/23/18 History (NF)] LoraTADine TAB(NF) [Claritin 10 MG 10 mg PO BID PRN 08/25/17 10/23/18 History TAB(NF)] Meclizine TAB* [Antivert 12.5 TAB*] 25 mg PO TID PRN 08/25/17 10/23/18 History Multivit with Calcium,Iron,Min 1 each PO BID 08/25/17 10/23/18 History [Multiple Vitamins For Women] Nebivolol TAB (NF) [Bystolic TAB 10 mg PO QAM 08/25/17 10/23/18 History (NF)] Polyvinyl Alcohol/Povidone/Pf 1 parris BOTH EYES BEDTIME 08/25/17 10/23/18 History [Refresh Classic Eye Drops] Propafenone HCl 225 mg PO QAM 08/25/17 10/23/18 History Rosuvastatin Calcium [Crestor] 10 mg PO QPM 08/25/17 10/23/18 History Dicyclomine CAP* [Bentyl CAP*] 10 mg PO TID PRN 07/25/18 10/23/18 History Gabapentin CAP(*) [Neurontin 400 600 mg PO BID 07/25/18 10/23/18 History mg CAP(*)] Ascorbic Acid/Vitamin E/Biotin 1 tab PO TID 10/12/18 10/23/18 History [Hair Skin Nails-Biotin Gummies] Domperidone 10 mg PO BID 10/12/18 10/23/18 History Lidocaine 5% OINT* TUBE [Xylocaine 1 applic TOPICAL DAILY PRN 10/12/18 10/23/18 History 5% Oint*] Prucalopride Succinate [Motegrity] 2 mg PO QPM 10/12/18 10/23/18 History Rabeprazole Sodium [Aciphex 20 mg PO QAM 10/12/18 10/23/18 History Sprinkle] Acetaminophen TAB* [Tylenol TAB*] 650 mg PO Q8H PRN tab 10/24/18 Rx Docusate CAP* [Colace Cap*] 100 mg PO BID PRN #90 cap 10/24/18 Rx oxyCODONE/Acetamin 5/325 MG* 1 tab PO Q4H PRN tab MDD 10 10/24/18 Rx [Percocet 5/325 TAB*] oxyCODONE/Acetamin 5/325 MG* 2 tab PO Q4H PRN #70 tab MDD 10 10/24/18 Rx [Percocet 5/325 TAB*] Discharge Instructions following Orthopedic Surgery: Activity: * Weight Bearing as tolerated * Continue physical therapy and occupational therapy exercises as shown * Start outpatient PT Wound care: * OK to shower on post-op day 3, no bathing, swimming, or submerging wound. * Use gentle soap, pat dry. Cover with gauze, PARIS wrap or tape. Call Orthopedic office for: * Increased drainage * Redness * Increased pain * Fever Go to ER with shortness of breath or chest pain. Diet: * Regular diet * Increase fluids and fiber to prevent constipation. * Continue to use stool softeners, call office if no bowel motion within 48 hours. Due to gastroparesis you are at an increased risk for constipation, please take stool softeners while you are on percocet to prevent constipation and contact your PCP/ GI specialist right away with any concerns. Medications See Home Medication List in your packet for medications that you should take after discharge. DVT Prophylaxis: Eliquis Dosin mg, 1 tab every 12 hours as you usually take at home, no change to this medication. Medication increases bleeding tendency Pain Control: Percocet Dosin/325 mg 1-2 tabs by mouth every 4-6 hours as needed for pain. Maximum of 10 tabs per day. Hold for sedation, wean off as soon as pain allows. Please note that Percocet contains Tylenol (acetaminophen). Maximum daily dose of Tylenol is 4000 mg from all sources. Antibiotics are required prior to any dental work. FOLLOW UP: Follow up with [Davis] Within 10-14 days, call for appointment Please call our office with any questions or concerns ([phone]) Rx [facility]
[2018-10-24 15:35] VITALS: BP 140/72
[2018-10-25] MEDS ORDERED: Bisacodyl SUPP* 10 MG SUPP PR PRN (14:16)
[2018-10-26] MEDS ORDERED: Scopolamine PATCH Remove* 1 NOTE MISC PATCH OFF ONE (06:00)
== END 2018-10-24 15:55 | disposition home or self-care (01) | DRG 302 ==
LOC: AA 07:44 → SSU 15:42
PROVIDERS: ADMIT Orthopaedic Surgery Adult Reconstructive Orthopaedic Surgery; ATTEND Orthopaedic Surgery Adult Reconstructive Orthopaedic Surgery
PROC: 0SRC0J9 Replacement of Right Knee Joint with Synthetic Substitute, Cemented, Open Approach (ICD-10-PCS; principal; 2018-10-23 11:30)
DX: M17.11 Unilateral primary osteoarthritis, right knee (principal); M54.9 Dorsalgia, unspecified; G89.4 Chronic pain syndrome; M79.7 Fibromyalgia; I10 Essential (primary) hypertension; K58.9 Irritable bowel syndrome, unspecified; M25.461 Effusion, right knee; E78.2 Mixed hyperlipidemia; J45.909 Unspecified asthma, uncomplicated; G43.909 Migraine, unspecified, not intractable, without status migrainosus; G47.33 Obstructive sleep apnea (adult) (pediatric); I48.0 Paroxysmal atrial fibrillation; K31.84 Gastroparesis; Z96.89 Presence of other specified functional implants; M94.0 Chondrocostal junction syndrome [Tietze]; K76.0 Fatty (change of) liver, not elsewhere classified; Z82.69 Family history of other diseases of the musculoskeletal system and connective tissue; Z82.49 Family history of ischemic heart disease and other diseases of the circulatory system; Z90.49 Acquired absence of other specified parts of digestive tract; Z90.710 Acquired absence of both cervix and uterus; Z88.8 Allergy status to other drugs, medicaments and biological substances; Z88.6 Allergy status to analgesic agent; Z88.1 Allergy status to other antibiotic agents; Z91.041 Radiographic dye allergy status; Z91.040 Latex allergy status; Z72.89 Other problems related to lifestyle; Z82.3 Family history of stroke; Z79.01 Long term (current) use of anticoagulants
CPT/HCPCS: 36415; 80048; 85014; 85018; 85049; A9270-GY; C1776; G8978-GP-CJ; G8979-GP-CI; J0690; J0780; J1170; J1240; J2250; J2704; J2795; J3010; J3490; J8540